=== PATIENT | female | born 1965 | race Caucasian/White ===

== ENCOUNTER 2021-05-07 00:19 | Emergency (ER) | payer BC ==
[2021-05-07] MEDS ORDERED: predniSONE 20 MG Tab PO ONE (00:20)
[2021-05-07] MEDS ORDERED: methylPREDNISolone Sodium Succinate 125 MG/2 ML SDV IVPUSH ONE (00:25)
[2021-05-07] MEDS ORDERED: Albuterol/Ipratropium 3.0-0.5 MG/3 ML Neb Soln NEB ONE (00:25)
[2021-05-07] MEDS ORDERED: Albuterol/Ipratropium 3.0-0.5 MG/3 ML Neb Soln ONE (00:26)
[2021-05-07] MEDS ORDERED: methylPREDNISolone Sodium Succinate 125 MG/2 ML SDV ONE (00:26)
[2021-05-07] MEDS ORDERED: Albuterol 0.083% 2.5 MG/3 ML Neb Soln NEB ONE ×2 (00:49→02:03)
[2021-05-07 00:58] LABS: ANION GAP 9.9 mEq/L (7-13); CHLORIDE,CL 102 mmol/L (98-107); SODIUM,NA 141 mmol/L (136-145)
--- NOTE | 2021-05-07 01:10 | CR ---
PROCEDURE INFORMATION: Exam: XR Chest Exam date and time: 05/07/2021 12:50 AM Age: 55 years old Clinical indication: Shortness of breath; Additional info: SOB TECHNIQUE: Imaging protocol: XR of the chest. Views: 1 view. COMPARISON: No relevant prior studies available. FINDINGS: Tubes, catheters and devices: Cardiac lead wires are present. Lungs: Unremarkable. No consolidation. Pleural spaces: Unremarkable. No pleural effusion. No pneumothorax. Heart/Mediastinum: Unremarkable. No cardiomegaly. Bones/joints: Unremarkable. IMPRESSION: No acute change is identified.
--- NOTE | 2021-05-07 01:37 | EDM.PDOC ---
ED HPI GENERAL MEDICAL PROBLEM - General Chief Complaint: Respiratory Problem Stated Complaint: TROUBLE BREATHING Time Seen by Provider: 05/07/21 00:45 Source of Information: Reports: Patient History Limitations: Reports: No Limitations - History of Present Illness INITIAL COMMENTS - FREE TEXT/NARRATIVE: ED with c/o difficulty breathing. Hx asthma only using rescue inhaler usually at night. Here hunting noted worsening today more severe this papo. Since 8pm using inhaler 1-2 times per hour. No recent fever, Cold congestion one month ago. has not been tested for COVID. Non vaccinated. No chest pain. No prior hospitalizations from asthma. 1/2ppd smoker. No swelling. - Related Data Allergies Allergy/AdvReac Type Severity Reaction Status Date / Time No Known Allergies Allergy Verified 05/07/21 00:32 Home Meds: Home Meds Albuterol Sulfate [Albuterol Sulfate HFA] 2 puff INH Q4H PRN 05/07/21 [History] Cetirizine [ZyrTEC] 10 mg PO DAILY 05/07/21 [History] Fluticasone Propionate [Flonase] 2 spray INH DAILY 05/07/21 [History] Sertraline [Zoloft] 50 mg PO DAILY 05/07/21 [History] Past Medical History HEENT History: Reports: Allergic Rhinitis Respiratory History: Reports: Asthma Social & Family History - Tobacco Use Tobacco Use Status *Q: Current Every Day Tobacco User Years of Tobacco use: 20 Packs/Tins Daily: 0.5 - Recreational Drug Use Recreational Drug Use: No ED ROS GENERAL - Review of Systems Review Of Systems: Comprehensive ROS is negative, except as noted in HPI. ED EXAM, GENERAL - Physical Exam Exam: See Below Exam Limited By: No Limitations General Appearance: Alert, Moderate Distress Eye Exam: Bilateral Eye: EOMI, PERRL Ears: Normal External Exam Nose: Normal Inspection Throat/Mouth: Normal Inspection Head: Atraumatic, Normocephalic Neck: Normal Inspection, Full Range of Motion Respiratory/Chest: Decreased Breath Sounds, Wheezing (bilateral lower fine). No: Crackles Cardiovascular: Normal Peripheral Pulses, Regular Rate, Rhythm, No Edema GI/Abdominal: Normal Bowel Sounds Extremities: Normal Inspection Neurological: Alert, Oriented, Normal Cognition Skin Exam: Warm, Dry, Intact, Pallor Course - Vital Signs Last Recorded V/S: Last Vital Signs Temp 96.3 F L 05/07/21 02:11 Pulse 87 05/07/21 02:11 Resp 14 05/07/21 02:11 BP 116/68 05/07/21 02:11 Pulse Ox 91 L 05/07/21 02:11 - Orders/Labs/Meds Orders: Active Orders 24 hr Category Date Time Status CULTURE BLOOD [BC] Stat Lab 05/07/21 00:30 Received CULTURE BLOOD [BC] Stat Lab 05/07/21 00:35 Received Blood Culture x2 Reflex Set [OM.PC] Stat Oth 05/07/21 00:26 Ordered Labs: Laboratory Tests 05/07/21 05/07/21 05/07/21 Range/Units 00:28 00:30 00:30 WBC 12.1 H (5.0-10.0) 10^3/uL RBC 4.66 (4.2-5.4) 10^6/uL Hgb 13.5 (12.0-16.0) g/dL Hct 42.2 (37.0-47.0) % MCV 90.6 (80-100) fL MCH 29.0 (27.0-34.0) pg MCHC 32.0 L (33.0-35.0) g/dL Plt Count 374 (150-450) 10^3/uL Neut % (Auto) 53.3 (42.2-75.2) % Lymph % (Auto) 32.1 (20.5-50.1) % Lares % (Auto) 8.1 H (2-8) % Eos % (Auto) 6.1 H (1.0-3.0) % Baso % (Auto) 0.4 (0.0-1.0) % D-Dimer, Quantitative 150 (0-400) ng/mL Sodium (136-145) mmol/L Potassium (3.5-5.1) mmol/L Chloride (98-107) mmol/L Carbon Dioxide (21-32) mmol/L Anion Gap (7-13) mEq/L BUN (7-18) mg/dL Creatinine (0.55-1.02) mg/dL Est Cr Clr Drug Dosing mL/min Estimated GFR (MDRD) BUN/Creatinine Ratio (No establ ref range) Glucose (70-99) mg/dL Lactic Acid (0.4-2.0) mmol/L Calcium (8.5-10.1) mg/dL Magnesium (1.8-2.4) mg/dL Total Bilirubin (0.2-1.0) mg/dL AST (15-37) U/L ALT (14-59) U/L Alkaline Phosphatase (46-116) U/L Troponin I High Sens (<=51) pg/mL Total Protein (6.4-8.2) g/dL Albumin (3.4-5.0) g/dL Globulin Albumin/Globulin Ratio SARS-CoV-2 RNA (JOHANNE) Negative (NEGATIVE) 05/07/21 05/07/21 Range/Units 00:30 00:30 WBC (5.0-10.0) 10^3/uL RBC (4.2-5.4) 10^6/uL Hgb (12.0-16.0) g/dL Hct (37.0-47.0) % MCV (80-100) fL MCH (27.0-34.0) pg MCHC (33.0-35.0) g/dL Plt Count (150-450) 10^3/uL Neut % (Auto) (42.2-75.2) % Lymph % (Auto) (20.5-50.1) % Lares % (Auto) (2-8) % Eos % (Auto) (1.0-3.0) % Baso % (Auto) (0.0-1.0) % D-Dimer, Quantitative (0-400) ng/mL Sodium 141 (136-145) mmol/L Potassium 3.9 (3.5-5.1) mmol/L Chloride 102 (98-107) mmol/L Carbon Dioxide 33 H (21-32) mmol/L Anion Gap 9.9 (7-13) mEq/L BUN 10 (7-18) mg/dL Creatinine 0.79 (0.55-1.02) mg/dL Est Cr Clr Drug Dosing 79.26 mL/min Estimated GFR (MDRD) > 60 BUN/Creatinine Ratio 12.7 (No establ ref range) Glucose 117 H (70-99) mg/dL Lactic Acid 0.5 (0.4-2.0) mmol/L Calcium 8.9 (8.5-10.1) mg/dL Magnesium 2.3 (1.8-2.4) mg/dL Total Bilirubin 0.4 (0.2-1.0) mg/dL AST 18 (15-37) U/L ALT 18 (14-59) U/L Alkaline Phosphatase 121 H (46-116) U/L Troponin I High Sens 9 (<=51) pg/mL Total Protein 7.8 (6.4-8.2) g/dL Albumin 3.8 (3.4-5.0) g/dL Globulin 4.0 Albumin/Globulin Ratio 0.9 SARS-CoV-2 RNA (JOHANNE) (NEGATIVE) Meds: Medications Discontinued Medications Generic Name Dose Route Start Last Admin Trade Name Freq PRN Reason Stop Dose Admin Albuterol 2.5 mg 05/07/21 00:49 05/07/21 00:54 Albuterol 0.083% 2.5 Mg/3 Ml Neb Soln NEB 05/07/21 00:50 2.5 mg ONETIME ONE Administration Albuterol 2.5 mg 05/07/21 02:03 05/07/21 02:08 Albuterol 0.083% 2.5 Mg/3 Ml Neb Soln NEB 05/07/21 02:04 2.5 mg ONETIME ONE Administration Albuterol Confirm 05/07/21 03:34 Albuterol 6.7 Gm Inhaler Administered 05/07/21 03:35 Dose 6.7 gm INH .STK-MED ONE Albuterol/Ipratropium 3 ml 05/07/21 00:25 05/07/21 00:31 Albuterol/Ipratropium 3.0-0.5 Mg/3 Ml Neb Soln NEB 05/07/21 00:26 3 ml ONETIME ONE Administration Albuterol/Ipratropium Confirm 05/07/21 00:26 05/07/21 00:31 Albuterol/Ipratropium 3.0-0.5 Mg/3 Ml Neb Soln Administered 05/07/21 00:27 Not Given Dose 3 ml .ROUTE .STK-MED ONE Methylprednisolone Sodium Succinate 125 mg 05/07/21 00:25 05/07/21 00:31 Methylprednisolone Sodium Succinate 125 Mg/2 Ml Sdv IVPUSH 05/07/21 00:26 125 mg ONETIME ONE Administration Methylprednisolone Sodium Succinate Confirm 05/07/21 00:26 05/07/21 00:31 Methylprednisolone Sodium Succinate 125 Mg/2 Ml Sdv Administered 05/07/21 00:27 Not Given Dose 125 mg .ROUTE .STK-MED ONE Prednisone Confirm 05/07/21 03:34 Prednisone 20 Mg Tab Administered 05/07/21 03:35 Dose 60 mg .ROUTE .STK-MED ONE - Re-Assessments/Exams Free Text/Narrative Re-Assessment/Exam: 05/07/21 04:16 improved air exchange. tolerating room air, maintaining oxygen saturation greater than 93%. Rare dry cough. Departure - Departure Time of Disposition: 03:25 Disposition: Home, Self-Care 01 Condition: Good Clinical Impression: Acute asthma - Discharge Information *PRESCRIPTION DRUG MONITORING PROGRAM REVIEWED*: No *COPY OF PRESCRIPTION DRUG MONITORING REPORT IN PATIENT APPLE: No Instructions: Asthma, Adult Forms: ED Department Discharge Additional Instructions: rest today light activity, advance as tolerated albuterol inhaler 2 puffs every 4 hours as needed for cough, wheezing prednisone taper recheck clinic next week, urgent follow up if worsening symptoms or develop fever Sepsis Event Note (ED) - Evaluation Sepsis Screening Result: No Definite Risk - Focused Exam Vital Signs: Vital Signs Temp Pulse Resp BP BP Pulse Ox 05/07/21 02:11 96.3 F L 87 14 116/68 91 L 05/07/21 02:03 91 05/07/21 00:58 86 15 126/82 126/82 100 05/07/21 00:50 100 05/07/21 00:45 97.6 F 97 20 79 L - My Orders Last 24 Hours: My Active Orders 05/07/21 00:26 Blood Culture x2 Reflex Set [OM.PC] Stat 05/07/21 00:30 CULTURE BLOOD [BC] Stat 05/07/21 00:35 CULTURE BLOOD [BC] Stat - Assessment/Plan Last 24 Hours: My Active Orders 05/07/21 00:26 Blood Culture x2 Reflex Set [OM.PC] Stat 05/07/21 00:30 CULTURE BLOOD [BC] Stat 05/07/21 00:35 CULTURE BLOOD [BC] Stat
[2021-05-07] MEDS ORDERED: Albuterol 6.7 GM Inhaler INH ONE (03:34)
[2021-05-07] MEDS ORDERED: predniSONE 20 MG Tab ONE (03:34)
== END 2021-05-07 04:11 | disposition home or self-care (01) ==
LOC: DL.ED 00:19
DX: J45.909 Unspecified asthma, uncomplicated (principal); Z72.0 Tobacco use; Z20.822 Contact with and (suspected) exposure to COVID-19
CPT/HCPCS: 36415; 71045; 80053; 83605; 83735; 84484; 85025; 85379; 87040; 87635; 93005; 94640; 96374; 99285; A9270; J2930; J7512; J7613-GY; J7620-GY; U0002